=== PATIENT | male | born 1955 | race Caucasian/White ===

== ENCOUNTER 2016-08-18 11:21 | Emergency (ER) | payer OTHER ==
--- NOTE | 2016-08-18 12:04 | C.PDOC ---
History Of Present Illness 61 year old male presents to the emergency room with complaints of right elbow pain that began while shoveling snow off of his car a few months ago. Patient attempted conservative management but the pain continues. Patient reports that when he tries to use the hand, he has pain in the elbow. Patient denies any numbness, weakness, fever, or any other complaints. Time Seen by Provider: 08/18/16 11:40 Chief Complaint (Nursing): Upper Extremity Problem/Injury History Per: Patient History/Exam Limitations: no limitations Onset/Duration Of Symptoms: Other (Few months ago) Current Symptoms Are (Timing): Still Present Quality: "Pain" Severity: Mild Exacerbating Factor(s): Movement Recent travel outside of the [place]: No Past Medical History Reviewed: Historical Data, Nursing Documentation, Vital Signs Vital Signs: Last Vital Signs Temp 98.3 F 08/18/16 11:26 Pulse 69 08/18/16 11:26 Resp 20 08/18/16 11:26 BP 111/68 08/18/16 11:26 Pulse Ox 97 08/18/16 12:07 - Medical History PMH: HTN Family History: States: No Known Family Hx - Social History Hx Alcohol Use: No Hx Substance Use: No Review Of Systems Except As Marked, All Systems Reviewed And Found Negative. Constitutional: Negative for: Fever, Chills Gastrointestinal: Negative for: Nausea, Vomiting, Diarrhea Musculoskeletal: Positive for: Other (Right elbow pain) Neurological: Negative for: Weakness, Numbness Physical Exam - Physical Exam Additional Physical Exam Comments: Constitutional: No acute distress. Head: Normocephalic. Atraumatic. Musculoskeletal: No tenderness or swelling of extremities. Full ROM. Motor sensation intact. Radial pulses 2+. Neurologic: Alert, no focal deficit. ED Course And Treatment O2 Sat by Pulse Oximetry: 97 Medical Decision Making Medical Decision Making: Right X-ray Ordered. Patient instructed to follow up with Ortho within a few days. XR negative for fracture. Disposition - Disposition Referrals: [facility] [Outside] Disposition: HOME/ ROUTINE Disposition Time: 12:40 Condition: STABLE Additional Instructions: Call the [facility] clinic and say that you need to be seen by Orthopedics. Instructions: Elbow Sprain (ED) - Clinical Impression Clinical Impression: Elbow pain - Scribe Statement The provider has reviewed the documentation as recorded by the Scribe Toño Kirkland All medical record entries made by the Elan were at my direction and personally dictated by me. I have reviewed the chart and agree that the record accurately reflects my personal performance of the history, physical exam, medical decision making, and the department course for this patient. I have also personally directed, reviewed, and agree with the discharge instructions and disposition.
--- NOTE | 2016-08-18 12:35 | RAD ---
Right elbow three views History: Elbow pain. Comparison: None available. Findings: No significant elbow joint effusion. No evidence of acute displaced fracture or dislocation. Impression: Negative acute. If pain persists, consider MRI.
[2016-08-18 12:59] VITALS: BP 105/69; PULSE 70; RESP 18; TEMP 97.3; O2SAT 96
== END 2016-08-18 13:00 | disposition home or self-care (01) ==
LOC: C.ER 11:21
DX: M25.521 Pain in right elbow (principal)